=== PATIENT | male | born 1960 | race Caucasian/White ===

== ENCOUNTER → 2025-02-17 10:49 | Outpatient (REF) | payer MEDICARE, OTHER, SELFPAY | LOC: RCS 10:49 | PROVIDERS: ATTENDING PHYSICIAN Nurse Practitioner Family | DX: I10 Essential (primary) hypertension (principal); M50.20 Other cervical disc displacement, unspecified cervical region; K63.5 Polyp of colon; E78.1 Pure hyperglyceridemia; N40.0 Benign prostatic hyperplasia without lower urinary tract symptoms; K76.0 Fatty (change of) liver, not elsewhere classified; Z12.5 Encounter for screening for malignant neoplasm of prostate | CPT/HCPCS: 93005 ==

== ENCOUNTER → 2025-02-24 10:28 | Outpatient (REF) | payer MEDICARE, OTHER, SELFPAY | LOC: RCS 10:28 | PROVIDERS: ATTENDING PHYSICIAN Nurse Practitioner Family | DX: Z00.00 Encounter for general adult medical examination without abnormal findings (principal); R06.09 Other forms of dyspnea | CPT/HCPCS: 93017 ==